=== PATIENT | female | born 1960 | race Caucasian/White ===

== ENCOUNTER 2017-03-07 07:35 | Day surgery (SDC) | payer MEDICAID ==
[~2017-03-07] VITALS: Ht 156.2 cm; Wt 95.3 kg
[~2017-03-07 07:35] MED LIST: ABILIFY30 MG PO; ACETTAB3 OR; ACTOS15 MG OR; ACTOS45 M1 PO; ADLT ASA LOW81 MG PO; ADVAIR DISK1 IN; ALBUTEROL0.083 % IN; ALBUTEROL0.5 % IN; ALBUTEROL90 MCG IN; AMBIEN5 MG OR; APAP OR; ASPIRIN81 MG OR; ATROVENT I0.5 MG/VIA IN; ATROVENT INH0.5 MG IN; BC HEADACH1 OR; BUTAL OR; CIPRO500 MG OR; CITALOPRAM10 MG PO; CLONAZEP ODT1 MG PO; DEPAKOTE125 MG; DOXYCYCL HYC100 MG PO; FLEXERIL10 MG PO; HEMOCYTE1 TAB OR; HUMULIN R1 M1 SC; HYDROCHLOROT12.5 MG OR; IBUPROFEN800 MG OR; IPRATROPIU0.5 MG/3 M NEB; JANUVIA50 MG OR; KLOR-CON M2020 MEQ OR; LANTUS100 MG/ML SC; LASIX 20 MG TAB20 MG PO; LASIX40 MG OR; LEVEMIR SC; LEVEMIR1000 UNITS SC; LEVIMIR; LEVOTHYROXIN50 MCG PO; LORAZEPAM0.5 MG PO; LYRICA200 MG PO; METFORMIN500 M1 OR; MICARDIS40 MG OR; MICARDIS40 MG PO; NICOTINE T21 MG/PATC TD; NITROSTAT; OMEPRAZOLE20 MG PO; ONDANSETRON4 MG OR; PEMPRO; PERCOCET 5/325M1 TAB PO; PLAVIX75 MG PO; PRAVACHOL40 MG OR; PREDNISONE10 MG PO; PREVACID30 M1 OR; PROTONIX40 M2 PO; PROVENTIL IN; PROZAC10 MG OR; RISPERDAL1 M1; ROBITUSSIN AC10 ML OR; ROBITUSSIN10 ML PO; RYZOLT100 MG OR; SEROQUEL XR400 MG OR; SPIRIVA IN; THEOCHRON OR; ULTRAM50 M1 PO; ULTRAM50 MG OR; WELLBUTRIN OR; ZOFRAN4 M1 OR; ZOFRAN4 M1 PO; ZPAK PO; [UNRECOGNIZED DRUG - OTHER] OR; lithium; lithium OR
[2017-03-07] MEDS ORDERED: TOPAMAX100 MG PO (08:03)
[2017-03-07] MEDS ORDERED: LOPID600 MG PO (08:03)
[2017-03-07] MEDS ORDERED: ESCITALOPRAM OX10 MG PO (08:04)
[2017-03-07] MEDS ORDERED: BENZTROPINE0.5 MG PO (08:04)
[2017-03-07] MEDS ORDERED: TEMAZEPAM30 MG PO (08:04)
[2017-03-07 10:32] VITALS: BP 121/58
== END 2017-03-07 10:25 | disposition home or self-care (01) | DRG 392 ==
LOC: ENDO 07:35
PROVIDERS: ATTEND Surgery
PROC: 0DBK8ZX Excision of Ascending Colon, Via Natural or Artificial Opening Endoscopic, Diagnostic (ICD-10-PCS; principal; 2017-03-07)
PROC: 0DBN8ZX Excision of Sigmoid Colon, Via Natural or Artificial Opening Endoscopic, Diagnostic (ICD-10-PCS; 2017-03-07)
DX: K52.9 Noninfective gastroenteritis and colitis, unspecified (principal); E11.9 Type 2 diabetes mellitus without complications; J44.9 Chronic obstructive pulmonary disease, unspecified; I10 Essential (primary) hypertension; F17.200 Nicotine dependence, unspecified, uncomplicated

== ENCOUNTER 2018-06-02 14:20 | Emergency (ER) | payer MEDICAID ==
[~2018-06-02] VITALS: Ht 156.2 cm; Wt 87.3 kg
[~2018-06-02 14:20] MED LIST changes: +BENZTROPINE0.5 MG PO; +ESCITALOPRAM OX10 MG PO; +LOPID600 MG PO; +TEMAZEPAM30 MG PO; +TOPAMAX100 MG PO
[2018-06-02] MEDS ORDERED: LEVEMIR100 UNIT/M SC (15:50)
[2018-06-02] MEDS ORDERED: METOPROL TAR25 MG PO (15:50)
[2018-06-02] MEDS ORDERED: LEVOTHYROXIN75 MCG PO (15:51)
[2018-06-02] MEDS ORDERED: ABILIFY15 MG PO (15:52)
[2018-06-02] MEDS ORDERED: MOTRIN400 MG PO (17:24)
[2018-06-02] MEDS ORDERED: VOLTAREN1%GEL TOP (17:24)
[2018-06-02 17:29] VITALS: BP 125/68
== END 2018-06-02 17:20 | disposition home or self-care (01) ==
LOC: ED 14:20
DX: S86.912A Strain of unspecified muscle(s) and tendon(s) at lower leg level, left leg, initial encounter (principal); E11.9 Type 2 diabetes mellitus without complications; J45.909 Unspecified asthma, uncomplicated; F17.210 Nicotine dependence, cigarettes, uncomplicated; W01.0XXA Fall on same level from slipping, tripping and stumbling without subsequent striking against object, initial encounter; Y92.009 Unspecified place in unspecified non-institutional (private) residence as the place of occurrence of the external cause; M79.662 Pain in left lower leg

== ENCOUNTER 2019-03-11 11:37 | Observation (INO) | payer MEDICAID ==
[~2019-03-11] VITALS: Ht 154.9 cm; Wt 81.6 kg
[~2019-03-11 11:37] MED LIST changes: +ABILIFY15 MG PO; +LEVEMIR100 UNIT/M SC; +LEVOTHYROXIN75 MCG PO; +METOPROL TAR25 MG PO; +MOTRIN400 MG PO; +VOLTAREN1%GEL TOP
[2019-03-11 12:19] LABS: HEMATOCRIT 41.8 % (37.0-47.0); IMMATURE GRANULOCYTES 0.3 % (0.0-5.0); MEAN CELL VOLUME 88.9 fL CALC (80.0-100.0); MEAN CORPUSCULAR HGB 29.8 pG CALC (26.0-32.0); MEAN CORPUSCULAR HGB CONC 33.5 g/L CALC (32.0-36.0); NEUT# 4.78 thou/uL (2.00-7.15); RED BLOOD COUNT 4.7 mill/uL (4.20-5.60); RED CELL DISTRI WIDTH 12.8 % (11.5-15.5)
[2019-03-11 12:44] LABS: ALBUMIN 3.8 g/dL (3.2-5.0); ALKALINE PHOSPHATASE 133 u/l (38-126); ANION GAP 14 (6-22 (CALC)); BUN 12 mg/dL (7-17); BUN/CREATININE RATIO 17 (12-20 (CALC)); CARBON DIOXIDE 22 mmol/l (22-30); CHLORIDE 109 mmol/l (95-108); CREATININE 0.7 mg/dL (0.5-1.0); GFR > 60 ML/MIN (>=60 (CALC)); GFR FOR AFR.AMER. > 60 ML/MIN (>=60 (CALC)); LIPASE 125 u/l (23-300); POTASSIUM 3.8 mmol/l (3.5-5.1); SGOT/AST 16 u/l (14-36); SODIUM 141 mmol/l (137-146); TOTAL PROTEIN 7.4 g/dL (6.3-8.2)
[2019-03-11 12:47] LABS: BILIRUBIN, TOTAL 0.3 mg/dL (0.0-1.4)
[2019-03-11 13:18] LABS: URINE BILIRUBIN - DIPSTICK NEGATIVE (NEGATIVE); URINE BLOOD DIPSTICK NEGATIVE (NEGATIVE); URINE COLOR YELLOW; URINE GLUCOSE - DIPSTICK NEGATIVE (NEGATIVE); URINE KETONE NEGATIVE (NEGATIVE); URINE LEUK ESTERASE TRACE (NEGATIVE); URINE NITRITE - DIPSTICK NEGATIVE (Negative); URINE PH 5.5 (4.5-8.0); URINE PROTEIN - DIPSTICK NEGATIVE (NEG-TRACE); URINE UROBILINOGEN - DIPSTICK 0.2 E.U./dL (0.2)
[2019-03-11 13:51] LABS: BARBITURATES NEGATIVE (NEGATIVE); COCAINE NEGATIVE (NEGATIVE); METHADONE NEGATIVE (NEGATIVE); OXCYCODONE NEGATIVE (NEGATIVE); TETRAHYDROCANNABIONOL NEGATIVE (NEGATIVE); TRICYLIC ANTIDEPRESSANTS NEGATIVE (NEGATIVE)
[2019-03-11 17:51] VITALS: BP 119/62
[2019-03-11 19:01] VITALS: BP 124/72
[2019-03-11 23:34] VITALS: BP 131/62
[2019-03-12 03:08] LABS: CHOLESTEROL HDL RATIO 4.7 (<4.4 (CALC))
[2019-03-12 03:10] VITALS: BP 124/69
[2019-03-12 07:58] VITALS: BP 113/64
[2019-03-12 11:11] VITALS: BP 157/83
[2019-03-12 15:09] VITALS: BP 129/72
[2019-03-12] MEDS ORDERED: MEDDOSEPAK PO (17:40)
[2019-03-12] MEDS ORDERED: NAPROXEN500 MG PO (17:40)
[2019-03-12] MEDS ORDERED: OMEPRAZOLE20 M2 PO (17:45)
== END 2019-03-12 18:28 | disposition home or self-care (01) ==
LOC: ED 11:37 → ED-I 14:06 → ED 14:17 → ED-I 14:18 → MS2 17:26
PROVIDERS: Nurse Practitioner Family; ADMIT Internal Medicine; ATTEND Internal Medicine
DX: R07.89 Other chest pain (principal); I10 Essential (primary) hypertension; E11.40 Type 2 diabetes mellitus with diabetic neuropathy, unspecified; E03.9 Hypothyroidism, unspecified; I25.10 Atherosclerotic heart disease of native coronary artery without angina pectoris; J44.9 Chronic obstructive pulmonary disease, unspecified; E78.5 Hyperlipidemia, unspecified; F17.210 Nicotine dependence, cigarettes, uncomplicated; Z86.73 Personal history of transient ischemic attack (TIA), and cerebral infarction without residual deficits; Z79.4 Long term (current) use of insulin; Z95.5 Presence of coronary angioplasty implant and graft; R51 Headache
CPT/HCPCS: G0378; S0164

== ENCOUNTER 2019-05-15 16:05 | Inpatient (IN) | payer MEDICAID ==
[~2019-05-15] VITALS: Ht 154.9 cm; Wt 80.0 kg
[~2019-05-15 16:05] MED LIST changes: +MEDDOSEPAK PO; +NAPROXEN500 MG PO; +OMEPRAZOLE20 M2 PO
--- NOTE | 2019-05-15 16:15 | NUR ---
PT SENT BACK TO WAITING ROOM, ADVISED OF BUSY ER STATUS
--- NOTE | 2019-05-15 18:12 | NUR ---
PT TO ROOM FOR EXAM
[2019-05-15 19:03] LABS: HEMATOCRIT 39.3 % (37.0-47.0); HEMOGLOBIN 12.9 g/dl (12.0-16.0); IMMATURE GRANULOCYTES 0.6 % (0.0-5.0); MEAN CELL VOLUME 87.5 fL CALC (80.0-100.0); MEAN CORPUSCULAR HGB 28.7 pG CALC (26.0-32.0); MEAN CORPUSCULAR HGB CONC 32.8 g/L CALC (32.0-36.0); NEUT# 15.16 thou/uL (2.00-7.15); RED BLOOD COUNT 4.49 mill/uL (4.20-5.60); RED CELL DISTRI WIDTH 13.1 % (11.5-15.5)
--- NOTE | 2019-05-15 19:05 | NUR ---
REPORT GIVEN TO KAE STACK
[2019-05-15 19:25] LABS: ALBUMIN 3.5 g/dL (3.2-5.0); ALKALINE PHOSPHATASE 135 u/l (38-126); ANION GAP 13 (6-22 (CALC)); BUN 28 mg/dL (7-17); BUN/CREATININE RATIO 28 (12-20 (CALC)); CARBON DIOXIDE 23 mmol/l (22-30); CHLORIDE 102 mmol/l (95-108); GFR 57 ML/MIN (>=60 (CALC)); GFR FOR AFR.AMER. > 60 ML/MIN (>=60 (CALC)); POTASSIUM 3.6 mmol/l (3.5-5.1); SGOT/AST 22 u/l (14-36); SODIUM 135 mmol/l (137-146); TOTAL PROTEIN 7.5 g/dL (6.3-8.2)
[2019-05-15 19:33] LABS: BILIRUBIN, TOTAL 0.6 mg/dL (0.0-1.4)
--- NOTE | 2019-05-15 19:38 | NUR ---
TO XRAY VIA W/C
--- NOTE | 2019-05-15 20:00 | NUR ---
RETURNED FROM RADIOLOGY
--- NOTE | 2019-05-15 20:36 | NUR ---
ICE AND CRACKERS GIVEN.
--- NOTE | 2019-05-15 21:30 | NUR ---
PT UP TO BR. NOW ON PHONE.
--- NOTE | 2019-05-15 21:40 | NUR ---
REPORT TO DASH/NURSE, MED-SURG
--- NOTE | 2019-05-15 22:00 | NUR ---
PATIENT A/O WITH COGNITIVE DELAY, NO S/S RESP DISTRESS, PATIENT ON ROOM AIR, PATIENT C/O 10/10 GENERALIZED PAIN, PATIENT DIABETIC PATIENT BLOOD GLUCOSE 66, PROVIDED PATIENT WITH ORAL SUPPLEMENT, PATIENT REDNESS UNDERNEATH CALVIN BREAST, PATIENT REDNESS AND EDEMA LEFT LOWER QUADRANT OF ABDOMEN, ORIENT PATIENT TO ROOM, STAFF, PLAN OF CARE, AND CALL LIGHT SYSTEM
[2019-05-15 22:05] VITALS: BP 104/64
--- NOTE | 2019-05-16 00:30 | NUR ---
PATIENT A/O, NO S/S RESP DISTRESS, PATIENT C/O PAIN IN ABDOMEN MD NOTIFIED, WILL TREAT PATIENT PAIN PER MD NEW ORDERS, WILL CONTINUE TO MONITOR PATIENT HOURLY, CALL LIGHT WITHIN REACH
[2019-05-16 03:47] VITALS: BP 92/55
--- NOTE | 2019-05-16 04:45 | NUR ---
PATIENT ABLE TO MAKE NEEDS KNOWN, PATIENT C/O NO PAIN, PATIENT C/O NO SEVERE ABD PAIN AFTER PAIN MED GIVEN, WILL CONTINUE TO MONITOR PATIENT HOURLY ROUNDING, CALL LIGHT WITHIN REACH
--- NOTE | 2019-05-16 07:00 | NUR ---
SHIFT CHANGE REPORT, PT AWAKE ALERT AND ORIENTED RESTING IN BED, C/O DISCOMFORT TO LEFT ABD WHICH IS OBSERVED TO BE RED AND SWOLEN WITH NECROTIC AREAS AND FOUL SMELLING, PT APPEARS UNKEMPT WITH POOR HYGIENE, WILL CONTINUE TO ADDRESS ISSUES, BED IN LOWEST POSITION AND CALL HERRERA IN REACH.
[2019-05-16 07:58] VITALS: BP 103/65
--- NOTE | 2019-05-16 12:00 | NUR ---
MEDIAL TEAM ROUNDED AND ASSESSED WOUND, DR CROWELL WILL DO SURGERY TOMORROW.
--- NOTE | 2019-05-16 12:00 | NUR ---
MEDICAL TEAM ROUNDED AND DISCUSSED PLAN OF CARE ORDERED, PT STATED UNDERSTANDING.
[2019-05-16 12:26] LABS: HEMOGLOBIN 11.8 g/dl (12.0-16.0); IMMATURE GRANULOCYTES 0.6 % (0.0-5.0); MEAN CELL VOLUME 88.7 fL CALC (80.0-100.0); MEAN CORPUSCULAR HGB 29.1 pG CALC (26.0-32.0); MEAN CORPUSCULAR HGB CONC 32.8 g/L CALC (32.0-36.0); NEUT# 11.18 thou/uL (2.00-7.15); RED BLOOD COUNT 4.06 mill/uL (4.20-5.60); RED CELL DISTRI WIDTH 13.2 % (11.5-15.5)
[2019-05-16 12:50] LABS: ANION GAP 13 (6-22 (CALC)); BUN 25 mg/dL (7-17); BUN/CREATININE RATIO 36 (12-20 (CALC)); CARBON DIOXIDE 19 mmol/l (22-30); CHLORIDE 109 mmol/l (95-108); CREATININE 0.7 mg/dL (0.5-1.0); GFR > 60 ML/MIN (>=60 (CALC)); GFR FOR AFR.AMER. > 60 ML/MIN (>=60 (CALC)); MAGNESIUM 2.2 mg/dL (1.6-2.3); SODIUM 137 mmol/l (137-146)
--- NOTE | 2019-05-16 13:45 | NUR ---
S: CHARLY ARTEAGA is a 58 F who presents with abdominal wall cellulitis. She has a history of COPD/asthma, HTN, insulin dependent DM with neuropathy, hypothyroidism, mental disorder, TIA, and heart disease with stent. All medications in patient's chart were reviewed. O: VS: BP 103/65 mmHg, P: 71 beats/min, RR: 18 breaths/min, T: 98.5 F W: 80.2 kg, HT: 61 in, Scr: 0.7 mg/dL, CrCl: 58.9 ml/min A: Blood culture is pending. P: Patient is on cefepime 2 gm IV Q12H. Vancomycin ordered for pharmacy to dose. Start Vancomycin 1 gm IV Q12H at 1000,2200. Vancomycin trough is drawn before the 4th dose on 05/17/19 at 09:30. Vancomycin goal trough is between 10-15 mcg/ml. Pharmacy will follow and or advise on antibiotics use as needed.
[2019-05-16] MEDS ORDERED: OMEPRAZOLE DR40 MG PO (15:32)
[2019-05-16] MEDS ORDERED: ABILIFY30 MG PO (15:35)
[2019-05-16] MEDS ORDERED: LOPRESSOR50 M2 PO (15:38)
[2019-05-16] MEDS ORDERED: PEPCID40 MG PO (15:39)
[2019-05-16] MEDS ORDERED: BUT/APAP/CAF PO (15:41)
[2019-05-16] MEDS ORDERED: LOPID600 MG PO (15:43)
[2019-05-16 15:45] VITALS: BP 108/65
[2019-05-16] MEDS ORDERED: NITROGLYCERIN0.4 MG SL (15:45)
[2019-05-16] MEDS ORDERED: CREON3000 UNIT PO (15:47)
--- NOTE | 2019-05-16 16:00 | NUR ---
PT ADVISED AND ENCOURAGED TO SHOWER, SHOWER SET UP AND NURSE ASSISTED WITH BATH AND LINNEN CHANGE, PT THEN RESETTLED IN BED.
--- NOTE | 2019-05-16 19:00 | NUR ---
REPORT RECEIVED FROM SEDA CORNELL. PT RESTING IN BED, NO S/S OF DISTRESS AT THIS TIME. SAFETY PRECAUTIONS IN PLACE. WILL CONTINUE TO MONITOR.
[2019-05-16 19:09] VITALS: BP 113/65
--- NOTE | 2019-05-16 20:15 | NUR ---
PT RESTING IN BED. RESPIRATIONS EVEN AND UNLABORED ON RA, LUNGS SOUND CLEAR/DIMINISHED. PEDAL PULSES STRONG. PT DENIES ANY PAIN OR DISCOMFORT AT THIS TIME. SAFETY PRECAUTIONS IN PLACE. WILL CONTINUE TO MONITOR.
[2019-05-17] VITALS (12 sets, daily range): BP systolic 81–121; BP diastolic 46–78
--- NOTE | 2019-05-17 00:10 | NUR ---
PT RESTING IN BED WITH EYES CLOSED APPEARS TO BE SLEEPING. RESPIRATIONS EVEN AND UNLABORED ON RA. NO S/S OF DISTRESS AT THIS TIME. WILL CONTINUE TO MONITOR.
--- NOTE | 2019-05-17 04:17 | NUR ---
PT RESTING IN BED. NO S/S OF DISTRESS AT THIS TIME. SAFETY PRECAUTIONS IN PLACE.
[2019-05-17 05:03] LABS: HEMATOCRIT 32.8 % (37.0-47.0); HEMOGLOBIN 10.6 g/dl (12.0-16.0); IMMATURE GRANULOCYTES 0.7 % (0.0-5.0); MEAN CELL VOLUME 88.2 fL CALC (80.0-100.0); MEAN CORPUSCULAR HGB 28.5 pG CALC (26.0-32.0); MEAN CORPUSCULAR HGB CONC 32.3 g/L CALC (32.0-36.0); NEUT# 9.03 thou/uL (2.00-7.15); RED BLOOD COUNT 3.72 mill/uL (4.20-5.60); RED CELL DISTRI WIDTH 13.4 % (11.5-15.5)
[2019-05-17 05:17] LABS: ANION GAP 12 (6-22 (CALC)); BUN 22 mg/dL (7-17); BUN/CREATININE RATIO 36 (12-20 (CALC)); CARBON DIOXIDE 19 mmol/l (22-30); CHLORIDE 110 mmol/l (95-108); CREATININE 0.6 mg/dL (0.5-1.0); GFR > 60 ML/MIN (>=60 (CALC)); GFR FOR AFR.AMER. > 60 ML/MIN (>=60 (CALC)); MAGNESIUM 2.2 mg/dL (1.6-2.3); POTASSIUM 3.9 mmol/l (3.5-5.1); SODIUM 137 mmol/l (137-146)
--- NOTE | 2019-05-17 08:00 | NUR ---
REPORT RECEIVED FROM SN RISHI. PT WITH BLOOD GLUCOSE AT 63. PT IS NPO IN PREP FOR SURGERY. PT C/O PAIN AT IV SITE. IV DISCONTINUED. NO REDNESS OR INFILTRATION NOTED. NEW IV STARTED #22 ON RFA. DEXTROSE 10% 250ML BOLUS ADMINISTERED FOR LOW BS. PT IS NPO. HUMAN SERVICES MANAGER WILL CONTINUE TO MONITOR.
--- NOTE | 2019-05-17 09:00 | NUR ---
BLOOD GLUCOSE AT 168.
--- NOTE | 2019-05-17 10:06 | NUR ---
PER SHADIA,OPERATING ROOM STAFF, JANN TO HOLD LOPRESSOR AND GIVE LYRICA AND LEXAPRO. COFFEE GRINDER HELD LEVZULLY AND NOVOLOG. PT IS NPO WITH EPISODE OF LOW BLOOD SUGAR THIS AM.
--- NOTE | 2019-05-17 10:19 | NUR ---
SN BEN HERE TO TAKE PATIENT TO OPERATING ROOM
--- NOTE | 2019-05-17 13:29 | NUR ---
S: CHARLY ARTEAGA is a 58 F who presents with abdominal wall cellulitis. She has a history of COPD/asthma, HTN, insulin dependent DM with neuropathy, hypothyroidism, mental disorder, TIA, and heart disease with stent. All medications in patient's chart were reviewed. O: VS: BP: 126/60 mmHg, P: 83 beats/min, RR: 16 breaths/min, T: 99.2 F W: 80 kg, HT: 61 in, Scr: 0.6 mg/dL, CrCl: 97.9 ml/min Vancomycin trough on 05/17/19 at 09:30 was 12 mcg/mL A: Blood culture is pending. Wound culture is pending. Vancomycin trough is therapeutic. P: Patient is on cefepime 2 gm IV Q12H. Vancomycin ordered for pharmacy to dose. Continue Vancomycin 1000 mg IV Q12H at 1000 and 2200. Vancomycin trough is to be drawn on 05/19/19 at 09:30. Vancomycin goal trough is between 10-15 mcg/ml. Pharmacy will follow and or advise on antibiotics use as needed.
--- NOTE | 2019-05-17 13:45 | NUR ---
I SPOKE WITH BULMARO FROM [facility] WOUND VAC @[address] THE WOUND VAC ON THIS T. THE WOUND VAC WAS PLACED ON THE PT IN THE OR. THE SERIAL #[id number] AND THE CONFIRMATION #[id number]. BULMARO STATED THAT ANOTHER WOUND VAC WOULD BE DELIVERED IN REPLACE OF THE ONE THAT WAS USED TODAY. [facility] #[phone]
--- NOTE | 2019-05-17 16:50 | NUR ---
PAIN MEDICATION ADMINISTERED FOR C/O PAIN TO LOWER LEFT ABDOMEN. MARKETING EDITOR WILL CONTINUE TO MONITOR
--- NOTE | 2019-05-17 18:55 | NUR ---
REPORT RECEIVED FROM DAY NURSE. PT RESTING IN BED. NO S/S OF DISTRESS AT THIS TIME. SAFETY PRECAUTIONS IN PLACE. WILL CONTINUE TO MONITOR.
--- NOTE | 2019-05-17 22:00 | NUR ---
PT RESTING IN BED, RESPIRATIONS EVEN AND UNLABORED ON RA, WHEEZES NOTED IN UPPER LUNG FEILDS. PEDAL PULSES STRONG. #22 RFA, PATENT AND APPEARS HEALTHY. WOUND VAC IN PLACE. WILL CONTINUE TO MONITOR.
--- NOTE | 2019-05-18 00:55 | NUR ---
PT RESTING IN BED WATCHING TV, RESPIRATIONS EVEN AND UNLABORED ON RA. WOUND VAC IN PLACE. WILL CONTINUE TO MONITOR.
[2019-05-18 03:50] VITALS: BP 103/52
--- NOTE | 2019-05-18 04:03 | NUR ---
PT ASSISTED TO THE BSC AND PROVIDED WITH TOILET PAPER, SAFETY PRECAUTIONS IN PLACE. WILL CONTINUE TO MONITOR.
[2019-05-18 05:39] LABS: ANION GAP 10 (6-22 (CALC)); BUN 22 mg/dL (7-17); BUN/CREATININE RATIO 35 (12-20 (CALC)); CARBON DIOXIDE 19 mmol/l (22-30); CHLORIDE 115 mmol/l (95-108); CREATININE 0.6 mg/dL (0.5-1.0); GFR > 60 ML/MIN (>=60 (CALC)); GFR FOR AFR.AMER. > 60 ML/MIN (>=60 (CALC)); HEMATOCRIT 30.6 % (37.0-47.0); HEMOGLOBIN 9.5 g/dl (12.0-16.0); MAGNESIUM 2.2 mg/dL (1.6-2.3); MEAN CELL VOLUME 91.9 fL CALC (80.0-100.0); MEAN CORPUSCULAR HGB 28.5 pG CALC (26.0-32.0); NEUT# 5.52 thou/uL (2.00-7.15); RED BLOOD COUNT 3.33 mill/uL (4.20-5.60); RED CELL DISTRI WIDTH 13.8 % (11.5-15.5); SODIUM 140 mmol/l (137-146)
[2019-05-18 07:45] VITALS: BP 119/37
--- NOTE | 2019-05-18 07:45 | NUR ---
RESTING IN BED ON ROUNDS. AWAKE, ALERT AND ORIENTED. RESO NON-LABORED. LUNGS CLEAR, NON-PRODUCTIVE COUGH PRESENT. WOUND VAC IN PLACE TO SUX TO LEFT ABD WOUND. NO C/O PAIN OR DISCOMFORTS AT THIS TIME. IV IN RFA, SITE HEALTHY, NS INFUSING AT 100 ML/HR. DICSUSSED PLAN OF CARE. DENIES NEEDS AT THIS TIME. CALL HERRERA IN REACH.
--- NOTE | 2019-05-18 10:00 | NUR ---
PATIENT VERBALIZES NEED TO BE DC'D TODAY D/T THINGS A HOME. INFORMED PATIENT SHE WILL NEED TO ADDRESS THIS WITH PROVIDERS WHEN THEY MAKE ROUNDS.
[2019-05-18 10:38] VITALS: BP 101/54
--- NOTE | 2019-05-18 12:00 | NUR ---
DR BEARDEN IN TO SEE PATIENT.
[2019-05-18 15:07] VITALS: BP 110/56
--- NOTE | 2019-05-18 15:59 | NUR ---
DR STEPHEN VISITED PATIENT EARLIER, CHANGED WOUND VAC TO AMBULATORY VAC FOR PATIENT DC LATER TODAY. PATIENT STATES PAIN PILL GIVEN EARLIER AHS HELPED TO DECREASE HER LEVEL OF PAIN TO A 3.
[2019-05-18 16:54] VITALS: BP 119/37
[2019-05-18] MEDS ORDERED: DOXYCYCLINE100 MG PO (16:57)
--- NOTE | 2019-05-18 18:35 | NUR ---
Discharge instructions given. Patient verbalizes understanding of same. Discharged in stable condition via Wheelchair to Home with family. All belongings sent with pt.
== END 2019-05-18 18:35 | disposition home health service (06) | DRG 572 ==
LOC: ED 16:05 → ED-I 20:50 → ED 21:07 → MS2 21:08
PROVIDERS: Family Medicine; Nurse Practitioner Family; ADMIT Internal Medicine; ATTEND Internal Medicine
PROC: 0JB80ZZ Excision of Abdomen Subcutaneous Tissue and Fascia, Open Approach (ICD-10-PCS; principal; 2019-05-17)
DX: L02.211 Cutaneous abscess of abdominal wall (principal); L03.311 Cellulitis of abdominal wall; J43.9 Emphysema, unspecified; E11.40 Type 2 diabetes mellitus with diabetic neuropathy, unspecified; L30.4 Erythema intertrigo; E78.5 Hyperlipidemia, unspecified; E03.9 Hypothyroidism, unspecified; F31.9 Bipolar disorder, unspecified; F17.200 Nicotine dependence, unspecified, uncomplicated; Z86.73 Personal history of transient ischemic attack (TIA), and cerebral infarction without residual deficits; Z79.4 Long term (current) use of insulin; Z95.5 Presence of coronary angioplasty implant and graft; Z88.0 Allergy status to penicillin; Z88.2 Allergy status to sulfonamides; Z88.8 Allergy status to other drugs, medicaments and biological substances
CPT/HCPCS: J0692; J1650; Q3014; Q9967

== ENCOUNTER 2019-12-23 10:22 | Emergency (ER) | payer OTHER, MEDICAID ==
[~2019-12-23] VITALS: Ht 154.9 cm; Wt 83.5 kg
[~2019-12-23 10:22] MED LIST changes: +BUT/APAP/CAF PO; +CREON3000 UNIT PO; +DOXYCYCLINE100 MG PO; +LOPRESSOR50 M2 PO; +NITROGLYCERIN0.4 MG SL; +OMEPRAZOLE DR40 MG PO; +PEPCID40 MG PO
[2019-12-23] MEDS ORDERED: IBUPROFEN200 MG PO (12:51)
[2019-12-23 12:52] LABS: URINE BILIRUBIN - DIPSTICK NEGATIVE (NEGATIVE); URINE BLOOD DIPSTICK NEGATIVE (NEGATIVE); URINE CLARITY CLEAR; URINE COLOR YELLOW; URINE GLUCOSE - DIPSTICK >=1000 mg/dL (NEGATIVE); URINE KETONE NEGATIVE (NEGATIVE); URINE LEUK ESTERASE NEGATIVE (Negative); URINE NITRITE - DIPSTICK NEGATIVE (Negative); URINE PROTEIN - DIPSTICK NEGATIVE (NEG-TRACE); URINE SPECIFIC GRAVITY 1.015; URINE UROBILINOGEN - DIPSTICK 0.2 E.U./dL (0.2)
[2019-12-23] MEDS ORDERED: FLEXERIL5 MG PO (12:52)
[2019-12-23] MEDS ORDERED: TRAMADOL HCL50 MG PO (12:52)
[2019-12-23] MEDS ORDERED: LORTAB 5/3255 MG PO (13:45)
[2019-12-23 14:00] VITALS: BP 148/70
== END 2019-12-23 14:00 | disposition home or self-care (01) | DRG 552 ==
LOC: ED 10:22
DX: M54.5 Low back pain (principal); E11.9 Type 2 diabetes mellitus without complications; I25.10 Atherosclerotic heart disease of native coronary artery without angina pectoris; J45.909 Unspecified asthma, uncomplicated; F17.210 Nicotine dependence, cigarettes, uncomplicated; Z95.5 Presence of coronary angioplasty implant and graft; Z79.4 Long term (current) use of insulin; Z86.73 Personal history of transient ischemic attack (TIA), and cerebral infarction without residual deficits